=== PATIENT | female | born 1970 | race Caucasian/White ===

== ENCOUNTER 2024-04-02 20:56 | Emergency (ER) | payer MEDICAID ==
[~2024-04-02] VITALS: Ht 162.6 cm; Wt 66.0 kg
[2024-04-02 21:12] VITALS: O2SAT 100
[2024-04-02 21:36] VITALS: BP 146/87; PULSE 82; RESP 18; TEMP 98; O2SAT 99
[2024-04-02] MEDS ORDERED: GABA-290 MT (23:14)
[2024-04-02] MEDS ORDERED: GABAPENTIN 300MG CAPSULE PO SCH (23:45)
== END 2024-04-03 00:14 | disposition home or self-care (01) ==
LOC: ER 20:56
DX: E11.40 Type 2 diabetes mellitus with diabetic neuropathy, unspecified (principal); I10 Essential (primary) hypertension; Z98.890 Other specified postprocedural states; Z76.0 Encounter for issue of repeat prescription; Z85.038 Personal history of other malignant neoplasm of large intestine; Z88.0 Allergy status to penicillin
CPT/HCPCS: 99281

== ENCOUNTER 2024-10-27 16:25 | Emergency (ER) | payer MEDICAID ==
[~2024-10-27] VITALS: Ht 162.6 cm; Wt 85.0 kg
[~2024-10-27 16:25] MED LIST: GABA-290 MT
[2024-10-27 16:27] VITALS: TEMP 37.2; O2SAT 96
[2024-10-27] MEDS ORDERED: ACET-2708 MT (18:07)
[2024-10-27] MEDS ORDERED: LIDO-53 TP (18:07)
[2024-10-27] MEDS: ACETAMINOPHEN 500MG TABLET PO ONE (18:08)
[2024-10-27 18:45] VITALS: BP 148/73; PULSE 73; RESP 14; O2SAT 98
== END 2024-10-27 18:52 | disposition home or self-care (01) ==
LOC: ER 16:25
DX: M25.562 Pain in left knee (principal); M25.561 Pain in right knee; E11.9 Type 2 diabetes mellitus without complications; I10 Essential (primary) hypertension; Z88.0 Allergy status to penicillin; Z98.890 Other specified postprocedural states; Z86.73 Personal history of transient ischemic attack (TIA), and cerebral infarction without residual deficits; W18.30XA Fall on same level, unspecified, initial encounter; Y93.89 Activity, other specified; Y92.89 Other specified places as the place of occurrence of the external cause; Y99.8 Other external cause status
CPT/HCPCS: 73562; 73610; 82962; 99284